=== PATIENT | female | born 1990 | race Caucasian/White ===

== ENCOUNTER 2023-11-11 15:48 | Emergency (ER) | payer OTHER, SELFPAY ==
[2023-11-11] VITALS (7 sets, daily range): BP systolic 110–141; BP diastolic 68–81; PULSE 87–104; RESP 14–24; TEMP 36.6–36.9; O2SAT 98–100
--- NOTE | 2023-11-11 15:50 | ECG_ITS ---
Measurements Intervals [place] Rate: 96 P: 27 ME: 124 QRS: 35 QRSD: 97 T: 28 QT: 346 QTc: 439 Interpretive Statements SINUS RHYTHM LOW QRS VOLTAGE IN PRECORDIAL LEADS [QRS DEFLECTION < 1.0 mV IN CHEST LEADS] NO PREVIOUS ECG AVAILABLE FOR COMPARISON Electronically Signed On 11-11-2023 21:10:11 PROTOHISTORIAN by Madelyn Benjamin M.D.
--- NOTE | 2023-11-11 17:05 | ED.ARRPALP ---
HPI - Arrhythmia/Palpitations General Chief Complaint: Arrhythmia/Palpitations Stated Complaint: elevated heart rate, 28 wks preg Time Seen by Provider: 11/11/23 16:24 History of Present Illness HPI narrative: Patient is a 33-year-old female who presents ER with elevated heart rate. Her smart watch is alert her to having an elevated heart rate above 150 beats per minute for 10 minutes today. She is asymptomatic at the time. She reports she went through her watch his history in noted that her heart rate has been ranging between 70 and 150 beats over last couple months. She has not been feeling particularly anxious. No fevers or chills. No additional symptoms. at 28 weeks. Review of Systems Review of Systems: All systems reviewed & are unremarkable except as noted in HPI and below Constitutional: Constitutional: Denies chills, Denies fatigue and Denies fever(s) ENT: Denies nasal congestion and Denies sore throat Cardiovascular: Cardiovascular: Denies chest pain, Reports rapid heart rate and Denies radiating jaw, neck or arm pain Respiratory: Respiratory: Reports no additional respiratory complaints Gastrointestinal: Gastrointestinal: Reports no additional gastrointestinal complaints Genitourinary: Genitourinary: Reports no additional female genitourinary complaints PMFSH Past Medical History Medical History (Updated 11/11/23 @ 18:26 by Sheng Piedra MD) Anxiety Surgical History Surgical History (Updated 11/11/23 @ 18:23 by Sheng Piedra MD) No history of previous surgery Exam Narrative: GENERAL: Well-appearing, well-nourished, and in no acute distress. HEAD: Normocephalic, atraumatic. EYES: PERRL and EOMI. CHEST: Clear to auscultation. No respiratory distress. HEART: Regular rate and rhythm. Normal peripheral pulses. EXTREMITIES: Normal range of motion. No edema. SKIN: Warm, dry, no rash. NEURO: Alert and oriented x3. PSYCH: Normal mood and affect. Course Course Emergency Course: Patient resting comfortably. Informed of results. Mild asymptomatic UTI that may be causing potential elevated heart rate. Will discharge with oral antibiotics. Patient declined chest x-ray which is okay. Vital Signs Vital signs: Vital Signs Temperature 98.4 F 11/11/23 15:57 Pulse Rate 97 11/11/23 15:57 Respiratory Rate 16 11/11/23 15:57 Blood Pressure 115/68 11/11/23 15:57 Pulse Oximetry 99 11/11/23 15:57 Oxygen Delivery Room Air 11/11/23 15:57 Temperature 97.8 F 11/11/23 17:01 Pulse Rate 87 11/11/23 18:00 Respiratory Rate 16 11/11/23 18:00 Blood Pressure 110/71 11/11/23 18:00 Pulse Oximetry 99 11/11/23 18:00 Oxygen Delivery Room Air 11/11/23 16:24 MDM - Arrhythmia/Palpitations Lab Data 11/11/23 17:03 11/11/23 17:03 Labs: Lab Results 11/11/23 11/11/23 Range/Units 17:02 17:03 WBC 12.1 H (4.5-10.0) K/mm3 RBC 3.73 L (4.2-5.4) M/mm3 Hgb 11.8 L (12.0-15.0) g/dL Hct 36.3 L (37.0-47.0) % MCV 97.3 (80-100) fl MCH 31.6 (26-34) pg MCHC 32.5 (32-36) g/dl RDW 13.5 (11.5-14.5) % Plt Count 220 (150-375) k/mm3 MPV 10.2 (7.4-10.4) fl Immature Gran % (Auto) 2.1 H (0-0.5) % Neut % (Auto) 71.0 (45.5-73.1) % Lymph % (Auto) 17.9 L (18.3-44.2) % [place] % (Auto) 7.6 (2.6-8.5) % Eos % (Auto) 0.7 (0-4.4) % Baso % (Auto) 0.7 (0.2-1.2) % Lymph # (Auto) 2.17 (0.9-3.2) K/mm3 [place] # (Auto) 0.9 H (0.1-0.6) K/mm3 Eos # (Auto) 0.1 (0-0.3) K/mm3 Baso # (Auto) 0.1 (0.0-0.1) K/mm3 Abs Immat Gran (auto) 0.26 H (0.00-0.031) K/mm3 Absolute Neuts (auto) 8.6 H (1.3-6.7) K/mm3 Absolute Nucleated RBC 0.0 (0.0-0.012) K/mm3 Nucleated RBC % 0.0 (0.0-0.2) % Sodium 135 L (137-145) mmol/L Potassium 3.8 (3.4-5.0) mmol/L Chloride 105 (98-107) mmol/L Carbon Dioxide 22 (22-30) mmol/L Anion Gap 8 (8-16) mmol/L BUN 8 (7-17) mg/dL Cr
[2023-11-11 17:12] LABS: Basophils Absolute Auto 0.1 K/mm3 (0.0-0.1); Basophils Percent Auto 0.7 % (0.2-1.2); Eosinophils Absolute Auto 0.1 K/mm3 (0-0.3); Eosinophils Percent Auto 0.7 % (0-4.4); Hematocrit 36.3 % (37.0-47.0); Hemoglobin 11.8 g/dL (12.0-15.0); Immature Granulocyte Absolute 0.26 K/mm3 (0.00-0.031); Immature Granulocyte Percent A 2.1 % (0-0.5); Lymphocytes Absolute Auto 2.17 K/mm3 (0.9-3.2); Lymphocytes Percent Auto 17.9 % (18.3-44.2); Mean Corpuscular HGB Conc 32.5 g/dl (32-36); Mean Corpuscular Hemoglobin 31.6 pg (26-34); Mean Corpuscular Volume 97.3 fl (80-100); Mean Platelet Volume 10.2 fl (7.4-10.4); Monocytes Absolute Auto 0.9 K/mm3 (0.1-0.6); Monocytes Percent Auto 7.6 % (2.6-8.5); Neutrophils Absolute Auto 8.6 K/mm3 (1.3-6.7); Platelet Count Result 220 k/mm3 (150-375); Red Blood Count 3.73 M/mm3 (4.2-5.4); Red Cell Distribution Width 13.5 % (11.5-14.5); White Blood Count 12.1 K/mm3 (4.5-10.0)
[2023-11-11 17:26] LABS: Alanine Aminotransferase 16 U/L (6-35); Albumin Level 3.7 g/dL (3.5-5.1); Alkaline Phosphatase 80 U/L (38-126); Anion Gap 8 mmol/L (8-16); Aspartate Amino Transferase 24 U/L (14-36); Bilirubin,Total 0.3 mg/dL (0.2-1.3); Blood Urea Nitrogen 8 mg/dL (7-17); Calcium 8.8 mg/dL (8.4-10.2); Carbon Dioxide 22 mmol/L (22-30); Chloride 105 mmol/L (98-107); Estimated CRCL calculation 149 ml/min; Estimated Glomerular Filt Rate > 60; Glucose 88 mg/dL (65-110); Magnesium 2.1 mg/dL (1.6-2.3); Potassium 3.8 mmol/L (3.4-5.0); Sodium 135 mmol/L (137-145)
[2023-11-11 17:30] LABS: Appearance Urine Clear (Clear); Bacteria Urine 1+ /hpf; Bilirubin Urine Negative (Negative); Blood Urine Negative (Negative); Color Urine Yellow (Yellow); Glucose Urine UA Negative (Negative); Ketones Urine Negative (Negative); Leukocyte Esterase Ur 2+ LEU/UL (Negative); Need Manual Microscopic Reviewed; Nitrate Urine Negative (Negative); Protein Urine Negative (Negative); RBC Urine 0-2 /hpf (0-2); Specific Grav Ur 1.023 (1.001-1.035); Squamous Epithelial Cell Urine Few /hpf (Few); Urobilinogen Urine 0.2 mg/dL (<2.0); WBC Urine 21-50 /hpf; pH Urine 6.5 (5.0-9.0)
[2023-11-11 17:33] LABS: Add Urine Microscopic? YES
== END 2023-11-11 18:50 | disposition home or self-care (01) ==
PROVIDERS: Emergency Provider Emergency Medicine; PCP Obstetrics & Gynecology Gynecology
DX: R00.2 Palpitations (principal); N39.0 Urinary tract infection, site not specified
CPT/HCPCS: 36415; 80053; 81001; 83735; 84443; 85025; 87086; 93005; 99284

== ENCOUNTER 2024-01-24 10:33 | Outpatient (CLI) | payer OTHER, SELFPAY ==
[2024-01-24 10:58] LABS: Basophils Percent Auto 0.4 % (0.2-1.2); Eosinophils Percent Auto 0.4 % (0-4.4); Hematocrit 38.4 % (37.0-47.0); Hemoglobin 12.8 g/dL (12.0-15.0); Immature Granulocyte Absolute 0.07 K/mm3 (0.00-0.031); Immature Granulocyte Percent A 0.8 % (0-0.5); Lymphocytes Absolute Auto 1.91 K/mm3 (0.9-3.2); Lymphocytes Percent Auto 21.3 % (18.3-44.2); Mean Corpuscular HGB Conc 33.3 g/dl (32-36); Mean Corpuscular Hemoglobin 31.8 pg (26-34); Mean Corpuscular Volume 95.5 fl (80-100); Mean Platelet Volume 10.8 fl (7.4-10.4); Monocytes Absolute Auto 0.7 K/mm3 (0.1-0.6); Monocytes Percent Auto 7.3 % (2.6-8.5); Neutrophils Absolute Auto 6.2 K/mm3 (1.3-6.7); Neutrophils Percent Auto 69.8 % (45.5-73.1); Platelet Count Result 208 k/mm3 (150-375); Red Blood Count 4.02 M/mm3 (4.2-5.4); Red Cell Distribution Width 13.4 % (11.5-14.5)
[2024-01-25 15:52] LABS: Rapid Plasma Reagin Non-Reactive (NonReactive)
== END 2024-01-24 11:00 | disposition home or self-care (01) ==
LOC: ANHOBOP 10:39 → ANHLDR 10:39
PROVIDERS: Visit Provider Obstetrics & Gynecology Gynecology
DX: Z30.2 Encounter for sterilization (principal)
CPT/HCPCS: 36415; 85025; 86592; 86850; 86900; 86901; 99199

== ENCOUNTER 2024-01-25 05:18 | Inpatient (IN) | payer OTHER, SELFPAY ==
[2024-01-25] VITALS (82 sets, daily range): BP systolic 94–130; BP diastolic 54–103; PULSE 62–120; RESP 12–18; TEMP 36.4–37.1; O2SAT 97–100; BMI 27.5
[2024-01-25] MEDS: LACTATED RINGERS 1,000 ML 125 ML IV CONT (05:51)
[2024-01-25] MEDS: ACETAMINOPHEN 500 MG TABLET 1000 MG PO (05:55)
--- NOTE | 2024-01-25 06:24 | LDADM ---
This patient, Ita Engle, was admitted to Labor/Delivery/Recovery 119 on 01/25/24 at 05:18. Plans for labor, pain management and were discussed with patient. Patient/family oriented to hospital policies and general routines including ID bracelet, bed and alarms, visiting hours, pain management, procedures, bathroom and other care routines, personal items, smoking policy, room service/diet and guest tray routines, infant security routines, and visiting hours. Patient/Family are encouraged to report perceived risks to care and to ask questions if they do not understand what they are told or what they should do. See OBIX for further documentation.
--- NOTE | 2024-01-25 06:40 | P.PNAN_ITS ---
Anes - Initial Pre Proc Eval Procedure: Operation Date: 01/25/24 07:30 Proposed Procedures p Primary Section with Tubal Ligation - Madeline Kwok MD Date/Time: 01/25/24 06:40 Surgeon: Madeline Kwok MD Pre Op Diagnosis: C/S Patient Data Age: 33 Gender: F Height: 1.65 m Weight: 75 kg Last Vital Signs Pulse 97 01/25/24 06:30 BP 120/85 01/25/24 06:30 Pulse Ox 98 01/25/24 06:36 Allergies Allergy/AdvReac Type Severity Reaction Status Date / Time amoxicillin Allergy Itching Verified 12/28/23 14:41 Home Medications Medication Instructions Recorded Confirmed Type docusate sodium 50 mg capsule 50 mg PO DAILY 12/28/23 01/25/24 History prenat.vits,michael,[id number] 1 tablet PO DAILY 12/28/23 01/25/24 History aspirin 81 mg tablet,delayed 81 mg PO DAILY 01/25/24 01/25/24 History release cetirizine 10 mg tablet (Zyrtec) 10 mg PO DAILY 01/25/24 01/25/24 History Patient hx anesthesia problems: none Family hx anesthesia problems: none Results Review: All pre-operative results and documents have been reviewed as part of the pre- operative evaluation. FORMERLY [facility], [facility] Past Medical History Medical History (Updated 11/12/23 @ 00:00 by Harley Mcknight) Anxiety Surgical History Surgical History (Updated 11/11/23 @ 18:23 by Sheng Piedra MD) No history of previous surgery Family History Family History (Updated 12/28/23 @ 14:47 by Bethanie Iglesias RN) Grandparent Lung cancer Grandparent Malignant neoplasm of prostate Mother Skin cancer Social History Social History Smoking status: Never smoker Second hand tobacco smoke exposure: No Substance use: never Do You Feel Safe in your Home?: Yes Lack of Transportation: No Lack of Food: Never True Current Housing: I Have Housing Concerned About Future Housing: No Difficulty Paying Gas/Electric Bills: No Difficulty Paying for Meds: No Currently Unemployed: No Education: Associate Degree Difficulty w/ Childcare or Family Care: No Spiritual care concerns: No Anes - Eval Final PreProcedure Day of Procedure 01/25/24 06:40 Patient weight: obese Heart: regular rate and rhythm Lungs: clear to auscultation and normal air movement Airway: Mallampati scale class II Neurological: alert and oriented Last oral intake: >/= 8 hours ASA classification: II Emergent: no Anesthetic plan: proceed Anesthesia type and monitoring: regional spinal and standard monitoring Results Review: All pre-operative results and documents have been reviewed as part of the pre- operative evaluation. Informed Consent: The patient's anesthetic plan and its attendant risks and benefits were discussed with the patient/family/POA. Questions were solicited and answers provided to the satisfaction of the patient/family/POA.
--- NOTE | 2024-01-25 07:05 | WPDHPUPDATE1 ---
History and Physical Update Update Date/Time: 01/25/24 07:05 History and Physical has been reviewed, including an updated exam of the patient. There are NO changes in the patient's condition. Risks, benefits, and alternatives have been discussed and questions answered. Patient agrees to proceed with procedure.
--- NOTE | 2024-01-25 07:06 | PM.IMHP ---
H&P: HPI History of Present Illness Date/Time: 01/25/24 07:06 Chief Complaint: Primary at 39 weeks Narrative: The patient is a 33-year-old 2 para 1 being admitted at 39 weeks for primary . The patient has a previous 4th degree laceration that required a secondary surgery to repair. It was recommended by the urogynecologist to proceed with for further deliveries. The has been uncomplicated. The labs are O positive, rubella immune, RPR negative, hepatitis-B surface negative, group B strep positive it is resistant to clindamycin. In addition the patient has requested permanent sterilization. The plan is to also proceed with a bilateral salpingectomy. Risks of failure and increased risk of ectopic are reviewed. The patient is aware this is permanent and sterilizing procedure. Review of Systems Review of Systems: not repeated day of surgery; patient states no changes in status PMFSH Past Medical History Medical History (Updated 01/25/24 @ 07:12 by Madeline Kwok MD) Anxiety History of perineal laceration secondary surgery to repair 4th degree laceration (normal spontaneous vaginal delivery) with her prior physician 4th degree laceration Surgical History Surgical History (Updated 01/25/24 @ 07:10 by Madeline Kwok MD) History of foot surgery right heel History of tonsillectomy Family History Family History (Updated 12/28/23 @ 14:47 by Bethanie Iglesias RN) Grandparent Lung cancer Grandparent Malignant neoplasm of prostate Mother Skin cancer Social History Social History Smoking status: Never smoker Second hand tobacco smoke exposure: No Substance use: never Do You Feel Safe in your Home?: Yes Lack of Transportation: No Lack of Food: Never True Current Housing: I Have Housing Concerned About Future Housing: No Difficulty Paying Gas/Electric Bills: No Difficulty Paying for Meds: No Currently Unemployed: No Education: Associate Degree Difficulty w/ Childcare or Family Care: No Spiritual care concerns: No Meds Home Medications and Allergies Home Medications Medication Instructions Recorded Confirmed Type docusate sodium 50 mg capsule 50 mg PO DAILY 12/28/23 01/25/24 History prenat.vits,michael,fim-hhwa-dkcwk 1 tablet PO DAILY 12/28/23 01/25/24 History aspirin 81 mg tablet,delayed 81 mg PO DAILY 01/25/24 01/25/24 History release cetirizine 10 mg tablet (Zyrtec) 10 mg PO DAILY 01/25/24 01/25/24 History Allergies Allergy/AdvReac Type Severity Reaction Status Date / Time amoxicillin Allergy Itching Verified 12/28/23 14:41 Vital Signs Vital Signs - 24 hr 01/25/24 05:41 01/25/24 05:42 01/25/24 05:45 Pulse Rate 94 98 Blood Pressure 119/82 118/84 Pulse Oximetry 98 01/25/24 05:46 01/25/24 05:51 01/25/24 05:56 Pulse Rate Blood Pressure Pulse Oximetry 98 98 97 01/25/24 06:01 01/25/24 06:06 01/25/24 06:11 Pulse Rate 101 H Blood Pressure 107/79 Pulse Oximetry 99 98 98 01/25/24 06:15 01/25/24 06:16 01/25/24 06:21 Pulse Rate Blood Pressure 120/103 H Pulse Oximetry 98 98 01/25/24 06:26 01/25/24 06:30 01/25/24 06:31 Pulse Rate 97 Blood Pressure 120/85 Pulse Oximetry 98 98 01/25/24 06:36 01/25/24 06:41 01/25/24 06:45 Pulse Rate 90 Blood Pressure 122/81 Pulse Oximetry 98 99 01/25/24 06:46 01/25/24 06:51 01/25/24 06:56 Pulse Rate Blood Pressure Pulse Oximetry 100 100 100 Exam Const: General: healthy appearing and alert Orientation/consciousness: patient oriented x3 Resp: Effort & Inspection: normal respiratory effort GI: GI Palp: Yes Soft to palpation, No Tenderness to palpation present (GI) and Yes Other GI palpation findings present ( gravid with a fundal height of 39cm) : External Female Exam: normal external appearance Speculum Exam - Vagina: normal appearance of the vagina
[2024-01-25] MEDS: ONDANSETRON INJ 4 MG/2 ML VIAL IV PUSH (07:11)
[2024-01-25] MEDS: LACTATED RINGERS 1,000 ML 999 ML IV CONT (07:11)
[2024-01-25] MEDS: FAMOTIDINE 20 MG/2 ML VIAL IV PUSH (07:13)
[2024-01-25] MEDS: ceFAZolin 2 GM/D5W 50 ML 2 GM/50 ML BAG IVPB (07:28)
--- NOTE | 2024-01-25 08:21 | P.OP_ITS ---
Procedure Note - Detailed Date of Procedure 01/25/24 Pre-op Diagnosis Intrauterine at 39 weeks previous 4th degree laceration with secondary repair presenting for primary requests sterilization Post-op Diagnosis Same ( complete uterine inversion) Procedure Performed primary low-transverse section, bilateral salpingectomy, management of uterine inversion Surgeon Madeline Kwok MD Anesthesia Spinal Findings female 8lb 9oz with Apgars of 8 [id number] and 9 [id number] normal-appearing tubes, ovaries, uterus Description of Procedure The patient is taken to the operating room and placed under anesthesia in the dorsal supine position with a leftward tilt. Once anesthesia was deemed adequate she was prepped and draped in the usual sterile fashion. A Pfannenstiel skin incision was made with a scalpel and carried down to the underlying layer of fascia. The fascia was nicked in the midline and extended laterally using Keller scissors. Ochsner was used to tent the fascia which then dissected off using sharp and blunt dissection. The peritoneum is tented and entered with Metzenbaum scissors and the incision extended laterally. The bladder blade is placed. The vesicouterine peritoneum was tented and entered with Metzenbaum scissors. The incision was extended laterally and the bladder flap created digitally. The lower uterine segment was incised in a transverse fashion with the scalpel. The incision was extended with blunt traction. The infant's head was brought up into the incision and delivered with minimal assistance. The remainder of the infant delivered quickly. The delayed cord c lamping was performed. The cord was then clamped and cut. The infant was handed to the waiting nursery nurse. Cord gases and cord blood were drawn. The placenta was sitting at the incision. And with minimal traction the uterus completely inverted. The placenta was easily removed. The uterus was exteriorized and the inversion reduced with a gloved fist. Uterine massage, Pitocin, and Methergine were quickly given. Minimal bleeding was encountered. The uterine incision was closed using 0 Monocryl in a running locked fashion. Same suture was used to imbricate. Good hemostasis is noted. The cul-de-sac is irrigated. The gutters are irrigated. The right tube was grasped with a [place] and crossclamped using a Z clamp. The tube is excised. The pedicle was tied using a Maria Elena stitch of 0 Vicryl, the pedicle was flashed, and a free tie placed. The identical procedure was performed on the left tube. The uterus returned to normal tone by the end of the case. The uterus was returned to the abdomen. The incision was again inspected and noted to be hemostatic. Both tubal pedicles are hemostatic. The fascia was then closed using 0 Vicryl in a running fashion. The subcutaneous tissues were irrigated and made hemostatic using Bovie cautery. Skin is closed using 4-0 Vicryl in a subcuticular fashion. Dermaflex was placed over the incision. Sponge, needle, and instrument counts are correct per the OR staff. Patient received Ancef prior to incision. Estimated Blood Loss 545 Drains Yes ( Crawford catheter) Packing No Pathology Yes ( placenta and tubes) Complications Other complications ( uterine inversion) Condition Stable Disposition Floor
--- NOTE | 2024-01-25 08:31 | P.DS_ITS ---
DS: Admitting Diagnosis Discharge Date 01/28/24 Admitting Diagnosis intrauterine at 39 weeks previous 4th degree laceration was secondary repair requests sterilization presenting for primary section DS: Discharge Diagnosis Discharge Diagnosis (1) Delivery by section using transverse incision of lower segment of uterus: Code(s): O82 - Encounter for delivery without indication Status: Acute (2) Status post bilateral salpingectomy: Code(s): Z90.79 - Acquired absence of other genital organ(s) Status: Acute (3) Uterine inversion: Code(s): N85.5 - Inversion of uterus Status: Acute OB - DS: Summary OB Procedures : Ultrasound OB Procedures Intrapartum: low cervical, transverse, Tubal ligation and Other ( reduction of uterine inversion) OB Procedures: : None Peripartum Data Infant Delivery Method: Section Procedures: Procedures Operation Date: 01/25/24 07:30 <No data on this case meets the specified criteria> complications: none Status at Discharge Functional status at discharge: independent ambulation Overall status at discharge: patient is progressing back to baseline Time Spent with Patient Time attestation: Total time spent providing and/or coordinating discharge services: DS: Data Data Completed and Pending Pending studies at discharge: Pending at discharge 01/25/24 08:18 Surgical [PTH] Routine Discharge Plan Discharge Attending physician on discharge: Madeline Kwok Discharging Clinician: Madeline Kwok Anticipated Discharge Date/Time: 01/28/24 08:33 Patient Disposition: Home, Self-Care Activity: may shower, may drive after 2 weeks and pelvic rest Diet: regular Wound Care Instructions: incision open to air Patient Instructions: Antibiotic Form Stand Alone Forms: General Discharge Information Follow-up/Referrals: Madeline Kwok MD [Physician] - 1 Week ( and 6 weeks) Discharge Medications: Continued #2 Tablet 1 tablet PO DAILY Discontinued Colace 50 mg Capsule 50 mg PO DAILY cetirizine [Zyrtec] 10 mg Tablet 10 mg PO DAILY aspirin [Aspir-81] 81 mg Tablet,Delayed Release (Dr/Ec) 81 mg PO DAILY Date of admission: 01/25/24 05:18 Primary Care Provider: PHYSICIAN,NON LICENSED OPERATOR Admitting Provider: Madeline Kwok Attending physician on admission: Madeline Kwok Condition: Stable
[2024-01-25] MEDS: MORPHINE SULFATE INJ (*CRX) 10 MG/ML AMP 2 MG IV PUSH ×2 (10:09→10:37)
[2024-01-25] MEDS: OXYTOCIN 30 UNITS/NS 500 ML 30 UNITS/500 ML BAG 125 UNITS IV CONT (10:11)
--- NOTE | 2024-01-25 10:45 | OBPPTRN ---
Patient transferred to post room # 281 via (stretcher ). Support person present. Oriented to unit, room, information board, rooming in, admission packet and security measures. Patient verbalizes understanding.
[2024-01-25] MEDS: KETOROLAC 15 MG/ML VIAL (*BKC) IV PUSH ×3 (12:08→23:23)
[2024-01-25] MEDS: SIMETHICONE 80 MG TAB.CHEW PO ×3 (12:08→23:04)
[2024-01-25] MEDS: ACETAMINOPHEN 325 MG TABLET 650 MG PO ×3 (12:08→23:22)
[2024-01-25] MEDS: MULTIVIT/MIN/PREN/FOL AC/IRON TABLET 1 TAB PO (12:08)
[2024-01-25] MEDS: DEXTROSE 5%/0.45% SOD CHL 1,000 ML 125 ML IV CONT (14:05)
[2024-01-25] MEDS: POLYSACCHARIDE IRON COMPLEX 150 MG CAPSULE PO (17:46)
[2024-01-25] MEDS: DOCUSATE SODIUM 100 MG CAPSULE PO (17:46)
[2024-01-25] MEDS: HYDROcodone/acetaminophen (*CRX) 5-325 MG TABLET 1 TAB PO (23:02)
[2024-01-26] MEDS: HYDROcodone/acetaminophen (*CRX) 5-325 MG TABLET 1 TAB PO ×3 (04:46→21:50)
[2024-01-26 04:47] LABS: Basophils Percent Auto 0.2 % (0.2-1.2); Eosinophils Percent Auto 0.1 % (0-4.4); Hematocrit 29.8 % (37.0-47.0); Hemoglobin 9.7 g/dL (12.0-15.0); Immature Granulocyte Absolute 0.13 K/mm3 (0.00-0.031); Immature Granulocyte Percent A 0.8 % (0-0.5); Lymphocytes Absolute Auto 2.28 K/mm3 (0.9-3.2); Lymphocytes Percent Auto 13.6 % (18.3-44.2); Mean Corpuscular HGB Conc 32.6 g/dl (32-36); Mean Corpuscular Hemoglobin 32.2 pg (26-34); Monocytes Absolute Auto 1.1 K/mm3 (0.1-0.6); Monocytes Percent Auto 6.4 % (2.6-8.5); Neutrophils Absolute Auto 13.3 K/mm3 (1.3-6.7); Neutrophils Percent Auto 78.9 % (45.5-73.1); Platelet Count Result 159 k/mm3 (150-375); Red Blood Count 3.01 M/mm3 (4.2-5.4); Red Cell Distribution Width 13.6 % (11.5-14.5); White Blood Count 16.8 K/mm3 (4.5-10.0)
--- NOTE | 2024-01-26 07:32 | WPDANLDPN2 ---
Anes-Prog Note L&D Date/Time: 01/26/24 07:32 Comfortable throughout: section Neuraxial method: spinal Epidural/Spinal procedure site: clean & non-tender Neuro status: Neuro function grossly intact. Cardiovascular status: normal Respiratory status: normal Airway patency: baseline Mental status: baseline Post-Op hydration status: normal Vital Signs: Last Vital Signs Temp 37.1 C 01/25/24 23:22 Pulse 78 01/25/24 23:22 Resp 16 01/25/24 23:22 BP 118/80 01/25/24 23:22 Pulse Ox 100 01/25/24 23:22 O2 Del Method Room Air 01/25/24 10:35 Pain score (VAS): 210 I/O: Intake & Output 01/25/24 01/25/24 01/26/24 15:59 23:59 07:59 Intake Total 1999 2049 Output Total 745 1150 1150 Balance 1255 900 -1150 Post-procedural complaints: none Patient feedback: Patient satisfied with anesthetic care.
--- NOTE | 2024-01-26 07:33 | WPDANLDNPN2 ---
Anes-Prog Note L&D-Neuraxial Date/Time: 01/26/24 07:33 Neuraxial medications: intrathecal PF morphine Opiod-related complaints: none Patient feedback: Patient satisfied with post-operative pain management.
--- NOTE | 2024-01-26 07:46 | P.PNOB_ITS ---
OB - PN: Subj Subjective Date/time seen: 01/26/24 07:46 Patient comments: no complaints and pain well controlled baby status: doing well OB - PN: Obj Data Labs 01/26/24 04:37 Labs: Laboratory Results - last 24 hr 01/26/24 04:37 WBC 16.8 H RBC 3.01 L Hgb 9.7 L D Hct 29.8 L MCV 99.0 MCH 32.2 MCHC 32.6 RDW 13.6 Plt Count 159 MPV 11.0 H Immature Gran % (Auto) 0.8 H Neut % (Auto) 78.9 H Lymph % (Auto) 13.6 L [place] % (Auto) 6.4 Eos % (Auto) 0.1 Baso % (Auto) 0.2 Lymph # (Auto) 2.28 [place] # (Auto) 1.1 H Eos # (Auto) 0.0 Baso # (Auto) 0.0 Abs Immat Gran (auto) 0.13 H Absolute Neuts (auto) 13.3 H Absolute Nucleated RBC 0.0 Nucleated RBC % 0.0 OB - PN A/P Plan day: 1 Plan: routine care Time Spent With Patient Time: Total time spent is greater than 50% in coordination of care (as documented) at patient's floor/unit and/or counseling patient: Exam Narrative: inc c/d/i : Bimanual exam- vagina & uterus: other (Uterus firm, nt @U)
[2024-01-26 07:50] VITALS: BP 111/71; PULSE 83; RESP 16; TEMP 36.6; O2SAT 97
[2024-01-26] MEDS: POLYSACCHARIDE IRON COMPLEX 150 MG CAPSULE PO ×2 (07:51→17:04)
[2024-01-26] MEDS: KETOROLAC 15 MG/ML VIAL (*BKC) IV PUSH (07:51)
[2024-01-26] MEDS: ACETAMINOPHEN 325 MG TABLET 650 MG PO ×2 (07:51→13:47)
[2024-01-26] MEDS: MULTIVIT/MIN/PREN/FOL AC/IRON TABLET 1 TAB PO (07:51)
[2024-01-26] MEDS: DOCUSATE SODIUM 100 MG CAPSULE PO ×2 (07:51→17:04)
[2024-01-26] MEDS: SIMETHICONE 80 MG TAB.CHEW PO ×3 (07:52→17:04)
[2024-01-26] MEDS: IBUPROFEN 600 MG TABLET PO ×2 (13:47→21:50)
[2024-01-26 20:38] VITALS: BP 109/72; PULSE 93; RESP 16; TEMP 36.9; O2SAT 99
[2024-01-27] MEDS: IBUPROFEN 600 MG TABLET PO ×2 (06:02→17:50)
[2024-01-27] MEDS: HYDROcodone/acetaminophen (*CRX) 5-325 MG TABLET 1 TAB PO ×2 (06:02→13:25)
--- NOTE | 2024-01-27 06:08 | PM.OBPNVD ---
OB - PN: Subj Subjective Date/time seen: 01/27/24 06:08 Patient comments: no complaints and pain well controlled baby status: doing well OB - PN: Obj Data Labs 01/26/24 04:37 OB - PN A/P Plan day: 2 Plan: routine care Time Spent With Patient Time: Total time spent is greater than 50% in coordination of care (as documented) at patient's floor/unit and/or counseling patient: Exam Narrative: inc c/d/i : Bimanual exam- vagina & uterus: other (Uterus firm, nt @U)
[2024-01-27 07:55] VITALS: BP 121/72; PULSE 84; RESP 18; TEMP 36.9; O2SAT 100
[2024-01-27] MEDS: ACETAMINOPHEN 325 MG TABLET 650 MG PO (09:07)
[2024-01-27] MEDS: MULTIVIT/MIN/PREN/FOL AC/IRON TABLET 1 TAB PO (09:08)
[2024-01-27] MEDS: SIMETHICONE 80 MG TAB.CHEW PO ×3 (09:08→17:50)
[2024-01-27] MEDS: DOCUSATE SODIUM 100 MG CAPSULE PO ×2 (09:08→17:50)
[2024-01-27] MEDS: POLYSACCHARIDE IRON COMPLEX 150 MG CAPSULE PO ×2 (09:08→17:50)
[2024-01-27 20:18] VITALS: BP 117/77; PULSE 109; RESP 18; TEMP 37; O2SAT 99
--- NOTE | 2024-01-28 07:47 | PM.OBPNVD ---
OB - PN: Subj Subjective Date/time seen: 01/28/24 07:47 Patient comments: no complaints and pain well controlled baby status: doing well OB - PN: Obj Data Labs 01/26/24 04:37 OB - PN A/P Plan day: 3 Plan: routine care, follow up 6 weeks and other (plans oc's will get at 1 wk follow up) Comments: plans to restart her Lexapro 10 mg Time Spent With Patient Time: Total time spent is greater than 50% in coordination of care (as documented) at patient's floor/unit and/or counseling patient: Exam Narrative: inc c/d/i : Bimanual exam- vagina & uterus: other (Uterus firm, nt @U)
[2024-01-28 09:10] VITALS: BP 117/72; PULSE 90; RESP 16; TEMP 36.5; O2SAT 97
[2024-01-28] MEDS: POLYSACCHARIDE IRON COMPLEX 150 MG CAPSULE PO (09:41)
[2024-01-28] MEDS: DOCUSATE SODIUM 100 MG CAPSULE PO (09:42)
[2024-01-28] MEDS: IBUPROFEN 600 MG TABLET PO (09:42)
[2024-01-28] MEDS: MULTIVIT/MIN/PREN/FOL AC/IRON TABLET 1 TAB PO (09:42)
[2024-01-28] MEDS: SIMETHICONE 80 MG TAB.CHEW PO (09:42)
[2024-01-28] MEDS: ACETAMINOPHEN 325 MG TABLET 650 MG PO (09:42)
[2024-01-29 11:21] VITALS: BP 118/80; PULSE 94; RESP 18; TEMP 37.1; O2SAT 100
== END 2024-01-28 12:07 | disposition home or self-care (01) | DRG 785 ==
LOC: ANHLDR 05:25 → ANHOB2 10:57
PROVIDERS: Admitting Provider Obstetrics & Gynecology Gynecology; Visit Provider Obstetrics & Gynecology Gynecology
PROC: 10D00Z1 Extraction of Products of Conception, Low, Open Approach (ICD-10-PCS; CPT 59514; principal; 2024-01-25 07:30)
DX: O99.824 Streptococcus B carrier state complicating childbirth (principal); Z3A.39 39 weeks gestation of pregnancy; Z37.0 Single live birth; Z30.2 Encounter for sterilization
CPT/HCPCS: 36415; 85025; 86592; 86850; 86900; 86901; 88302; 88307; 99199; A9270; J0690; J1885; J2210; J2270; J2274; J2371; J2405; J2590; J7120